=== PATIENT | male | born 1960 | race Caucasian/White ===

== ENCOUNTER → 2020-02-15 07:38 | Outpatient (CLI) | payer OTHER, SELFPAY ==
--- NOTE | 2020-02-15 07:42 | CT_ITS ---
STUDY: CTA OF THE ABDOMINAL AORTA AND BILATERAL LOWER EXTREMITIES REASON FOR EXAM: Male, 59 years old. HX PE, DECREASED CIRCULATION, ON BLOOD THINNERS RADIATION DOSAGE (If Supplied By Facility): CTDIvol = ( 10.41 ) mGy, DLP = ( 1527.07 ) mGycm TECHNIQUE: Axial CT angiography multi-detector data acquisition was obtained from the dome of the liver to the ankle joints following intravenous administration of IV 100mL [id number]. Axial images and MIP images were reconstructed from the axial data set. Post-processing of the angiographic images was performed, with multiplanar reformation and 3D reconstruction. Individualized dose optimization techniques were used for this CT. TECHNICAL QUALITY: Good COMPARISON: None. Descriptors of Narrowing: None (0%) Mild (< 50%) Moderate (50-70%) Severe (70-90%) Subtotal/Total Occlusion (90-100%) Non-Evaluable (technically non-diagnostic FINDINGS: Minimal degree of increased markings at the lung bases suggestive of linear atelectasis and/or scarring. Abdominal aorta: There is aneurysmal dilatation of the infrarenal abdominal aorta with a transverse dimension of 2.5 cm. 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 Celiac and superior mesenteric arteries: No demonstrated narrowing. Inferior mesenteric artery: No demonstrated narrowing. Right renal artery(arteries): No demonstrated narrowing. Left renal artery(arteries): No demonstrated narrowing. 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 Thrombus is seen within it. Right external iliac artery: There is reconstitution of the external iliac artery via collateral circulation. Right internal iliac artery: No demonstrated narrowing. Left common iliac artery: Nonocclusive atherosclerotic plaque is seen. Left external iliac artery: No demonstrated narrowing. Left internal iliac artery: No demonstrated narrowing. RIGHT LOWER EXTREMITY Right common femoral artery: No demonstrated narrowing. Right profundus femoris: No demonstrated narrowing. Right superficial femoral: There is occlusion of the superficial femoral artery along its distal portion. There is reconstitution of the tibioperoneal trunk. Right popliteal artery: Occluded. Right tibioperoneal trunk: Reconstitution of the tibioperoneal trunk at its origin. Right anterior tibial artery: No demonstrated narrowing. Right posterior tibial artery: No demonstrated narrowing. Right peroneal artery: No demonstrated narrowing. LEFT LOWER EXTREMITY Left common femoral artery: No demonstrated narrowing. Left profundus femoris: No demonstrated narrowing. Left superficial femoral: There is occlusion of the superficial femoral artery along its distal portion. The popliteal artery is reconstituted in its midportion via collateral circulation. Left popliteal artery: No demonstrated narrowing. Left tibioperoneal trunk: No demonstrated narrowing. Left anterior tibial artery: No demonstrated narrowing. Left posterior tibial artery: No demonstrated narrowing. Left peroneal artery: No demonstrated narrowing. CT/CTA Abd w/Runoff W/WO Contrast IMPRESSION: Multiple findings as described above. Electronically Signed: Dax Cheney, at 9:17 EDT , Service support ,
[2020-02-15 08:20] LABS: CREATININE FINGERSTICK 0.9 mg/dL (0.70-1.30)
== END ==
PROVIDERS: PCP Internal Medicine Infectious Disease; Referring Provider Surgery Vascular Surgery; Visit Provider Surgery Vascular Surgery
DX: I70.213 Atherosclerosis of native arteries of extremities with intermittent claudication, bilateral legs (principal)
CPT/HCPCS: 75635; Q9967